=== PATIENT | male | born 1925 | race Caucasian/White ===

== ENCOUNTER 2016-06-03 13:16 | Observation (INO) | payer OTHER, MEDICARE ==
[2016-06-03] VITALS (8 sets, daily range): BP systolic 133–156; BP diastolic 66–80; PULSE 55–77; RESP 17–18; TEMP 97.6–98.8; O2SAT 95–96
[~2016-06-03] VITALS: Ht 177.8 cm; Wt 80.0 kg
[2016-06-03] MEDS ORDERED: SODIUM CHLORIDE 0.9% FLUSH 10 ML FLUSH IVF PRN (15:45)
[2016-06-03] MEDS ORDERED: ASPIRIN 325 MG TAB PO ONE (15:45)
--- NOTE | 2016-06-03 15:57 | RADRPT ---
EXAM DATE/TIME: 06/03/2016 15:45 [facility] COMPARISON: No previous studies available for comparison. INDICATIONS : Short of breath MEDICAL HISTORY : None. SURGICAL HISTORY : Pacemaker. Heart valve replacement ENCOUNTER: Initial ACUITY: 1 day PAIN SCORE: 0/10 LOCATION: chest FINDINGS: Cardiomegaly. Median sternotomy wires and CABG markers. Aortic calcification. Dual-lead pacer from a left subclavian transvenous approach noted. A small right effusion is present. CONCLUSION: Small right effusion. Cody Lowry MD on June 03, 2016 at 15:55 Board Certified Radiologist. This report was verified electronically.
--- NOTE | 2016-06-03 16:17 | PD ---
HPI Chief Complaint: Cardiac Complaint Time Seen by Provider: 15:35 Travel History International Travel<30 days: No Contact w/Intl Traveler<30days: No Traveled to known affect area: No History of Present Illness HPI 89-year-old male arrives to the ER following a visit to the [facility]. At the [facility] he had an EKG performed which revealed irregular beats with a ventricular paced rhythm. The patient reports feeling somewhat sleepy and lightheaded for the past 2-3 weeks. Palpitations are reported. He reports having medications changed recently however he is not sure what meds were changed. He's had no fever, shortness of breath or cough. PFSH Past Medical History Atrial Fibrillation: Yes Cardiovascular Problems: Yes (aortic valve replacement in 2003) Diabetes: Yes Patient Takes Glucophage: No Hypertension: Yes Social History Alcohol Use: Yes (on occasion) Tobacco Use: No Allergies-Medications (Allergen,Severity, Reaction): Coded Allergies: No Known Allergies (Unverified , 06/03/16) Reported Meds & Prescriptions Reported Meds & Active Scripts Active Reported [Bp Medication] 1 Tab PO BID Review of Systems Except as stated in HPI: all other systems reviewed are Neg General / Constitutional: No: Fever Physical Exam Narrative GENERAL: 89-year-old male pleasant well-nourished well-developed SKIN: Focused skin assessment warm/dry. HEAD: Atraumatic. Normocephalic. EYES: Pupils equal and round. No scleral icterus. No injection or drainage. ENT: No nasal bleeding or discharge. Mucous membranes pink and moist. NECK: Trachea midline. No JVD. CARDIOVASCULAR: Regular rate and rhythm. No murmur appreciated. Right chest wall pacing device. RESPIRATORY: No accessory muscle use. Clear to auscultation. Breath sounds equal bilaterally. GASTROINTESTINAL: Abdomen soft, non-tender, nondistended. Hepatic and splenic margins not palpable. MUSCULOSKELETAL: No obvious deformities. No clubbing. No cyanosis. No edema. NEUROLOGICAL: Awake and alert. No obvious cranial nerve deficits. Motor grossly within normal limits. Normal speech. PSYCHIATRIC: Appropriate mood and affect; insight and judgment normal. Data Data Last Documented VS Vital Signs Date Time Temp Pulse Resp B/P Pulse Ox O2 Delivery O2 Flow Rate FiO2 06/03/16 17:25 98.3 74 18 152/76 96 Room Air Vital signs reviewed Orders Electrocardiogram (06/03/16 ) Electrocardiogram (06/03/16 15:35) Basic Metabolic Panel (Bmp) (06/03/16 15:35) Ckmb (Isoenzyme) Profile (06/03/16 15:35) Complete Blood Count With Diff (06/03/16:35) Magnesium (Mg) (06/03/16 15:35) Prothrombin Time / Inr (Pt) (06/03/16:35) Act Partial Throm Time (Ptt) (06/03/16:35) Troponin I (06/03/16:35) Chest, Single Ap (06/03/16:35) Ecg Monitoring (06/03/16:35) Bilateral Bp Monitoring (06/03/16:35) Iv Access Insert/Monitor (06/03/16:35) Oximetry (06/03/16:35) Oxygen Administration (06/03/16:35) Aspirin (Aspirin) (06/03/16:45) Sodium Chloride 0.9% Flush (Ns Flush) (06/03/16:45) Activity Bed Rest With Brp (06/03/16:47) Vital Signs (Adult) Q4H (06/03/16:47) Cardiac Rhythm .As Directed (06/03/16:47) Notify Dr: Other .PRN (06/03/16:47) Notify Parameters (06/03/16:47) Resp Oxygen Nasal Cannula (06/03/16 ) Diet Heart Healthy (06/03/16 Dinner) Ckmb (Isoenzyme) Profile (06/03/16:47) Ckmb (Isoenzyme) Profile (06/03/16 20:47) Troponin I (06/03/16:47) Troponin I (06/03/16:47) Electrocardiogram (06/03/16:47) Electrocardiogram (06/03/16:47) ^ Obtain (06/03/16:47) Acetamin-Hydrocod 325-7.5 Mg ([place] 7.5 (06/03/16 18:00) Morphine Inj (Morphine Inj) (06/03/16 18:00) Ondansetron Inj (Zofran Inj) (06/03/16 18:00) Nitroglycerin Sl (Nitrostat Sl) (06/03/16 18:00) Aspirin (Aspirin) (06/04/16 09:00) Temazepam (Restoril) (06/03/16 18:00) Alprazolam (Xanax) (06/03/16 18:00) Adjunct Psychology Faculty Member / Telemetry [email or web address] (06/03/16 17:47) Admit Order (Ed Use Only) (06/03/16 17:47) Labs Laboratory Tests Test 06/03/16 16:13 White Blood Count 15.2 TH/MM3 Red Blood Count 5.07 MIL/MM3 Hemoglobin 13.7 GM/DL Hematocrit 43.2 % Mean Corpuscular Volume 85.1 FL Mean Corpuscular Hemoglobin 27.1 PG Mean Corpuscular Hemoglobin 31.8 % Concent Red Cell Distribution Width 15.2 % Platelet Count 167 TH/MM3 Mean Platelet Volume 7.4 FL Neutrophils (%) (Auto) 29.1 % Lymphocytes (%) (Auto) 65.4 % Monocytes (%) (Auto) 4.8 % Eosinophils (%) (Auto) 0.5 % Basophils (%) (Auto) 0.2 % Neutrophils # (Auto) 4.4 TH/MM3 Lymphocytes # (Auto) 10.0 TH/MM3 Monocytes # (Auto) 0.7 TH/MM3 Eosinophils # (Auto) 0.1 TH/MM3 Basophils # (Auto) 0.0 TH/MM3 CBC Comment AUTO DIFF Differential Total Cells 100 Counted Neutrophils % (Manual) 29 % Band Neutrophils % 1 % Lymphocytes % 66 % Monocytes % 4 % Neutrophils # (Manual) 4.6 TH/MM3 Differential Comment FINAL DIFF MANUAL Platelet Estimate NORMAL Platelet Morphology Comment NORMAL Prothrombin Time 11.1 SEC Prothromb Time International 1.0 RATIO Ratio Activated Partial 27.7 SEC Thromboplast Time Sodium Level 144 MEQ/L Potassium Level 4.8 MEQ/L Chloride Level 107 MEQ/L Carbon Dioxide Level 29.5 MEQ/L Anion Gap 8 MEQ/L Blood Urea Nitrogen 21 MG/DL Creatinine 1.41 MG/DL Estimat Glomerular Filtration 47 ML/MIN Rate Random Glucose 104 MG/DL Calcium Level 9.6 MG/DL Magnesium Level 2.6 MG/DL Total Creatine Kinase 63 U/L Troponin I 0.03 NG/ML MDM Medical Decision Making Medical Screen Exam Complete: Yes Emergency Medical Condition: Yes Medical Record Reviewed: Yes Differential Diagnosis NSTEMI, unstable angina, coronary vasospasm, PE, PTX, aortic dissection, pericarditis, myocarditis, endocarditis, PNA, esophageal disease, aneurysm, musculoskeletal etiologies, anxiety, cocaine/sympathomimetic abuse Narrative Course CBC & BMP Diagram 06/03/16 16:13 Troponin is 0.03 EKG reveals a ventricular paced rhythm at a rate of 69 Last 24 hours Impressions Chest X-Ray 06/03/16 1535 Signed Impressions: Service Date/Time: Friday, June 03, 2016 15:45 - CONCLUSION: Small right effusion. Cody Lowry MD The patient will stay for chest pain center evaluation. Diagnosis Primary Impression: Chest pain Qualified Code: R07.9 - Chest pain, unspecified type Additional Impression: Pleural effusion Admitting Information Admitting Physician Requests: Observation Samuel Johnson MD Jun 03, 2016 16:17
[2016-06-03 16:39] LABS: AUTOMATED NEUTROPHIL # 4.4 TH/MM3 (1.8-7.7); BASOPHIL % 0.2 % (0.0-2.0); EOSINOPHIL # 0.1 TH/MM3 (0-0.4); EOSINOPHIL % 0.5 % (0.0-4.0); HEMATOCRIT 43.2 % (39.0-51.0); LYMPH % 65.4 % (9.0-44.0); MEAN CELL VOLUME 85.1 FL (80.0-100.0); MEAN CORPUSCULAR HEMOGLOBIN 27.1 PG (27.0-34.0); MEAN CORPUSCULAR HGB CONC 31.8 % (32.0-36.0); MONO % 4.8 % (0.0-8.0); NEUT % 29.1 % (16.0-70.0); PLATELET COUNT 167 TH/MM3 (150-450); RED BLOOD COUNT 5.07 MIL/MM3 (4.50-5.90); RED CELL DISTRIBUTION WIDTH 15.2 % (11.6-17.2); WHITE BLOOD COUNT 15.2 TH/MM3 (4.0-11.0)
[2016-06-03 16:40] LABS: HEMO FLAGS AUTO DIFF
[2016-06-03 16:50] LABS: APTT (PATIENT) 27.7 SEC (24.3-30.1); PROTHROMBIN TIME - PATIENT 11.1 SEC (9.8-11.6)
[2016-06-03 17:00] LABS: BICARBONATE 29.5 MEQ/L (21.0-32.0); MAGNESIUM 2.6 MG/DL (1.5-2.5); POTASSIUM 4.8 MEQ/L (3.5-5.1)
[2016-06-03 17:05] LABS: BANDS 1 % (0-6); NEUTROPHIL # MANUAL DIFF 4.6 TH/MM3 (1.8-7.7); POLYS (SEG NEUTROPHILS) 29 % (16-70); WBC DIFF SAMPLE 100
[2016-06-03 17:06] LABS: PLATELET ESTIMATE SMEAR NORMAL (NORMAL); PLATELET MORPHOLOGY NORMAL (NORMAL); SCAN/DIFF FINAL DIFF MANUAL
[2016-06-03] MEDS ORDERED: ONDANSETRON HCL 4 MG/2 ML VIAL IV PRN (18:00)
[2016-06-03] MEDS ORDERED: ALPRAZolam 0.25 MG TAB PO PRN (18:00)
[2016-06-03] MEDS ORDERED: TEMAZEPAM 15 MG CAP PO PRN (18:00)
[2016-06-03] MEDS ORDERED: ACETAMINOPHEN/HYDROcodone 325 MG/7.5 MG TAB PO PRN (18:00)
[2016-06-03] MEDS ORDERED: MORPHINE SULFATE 4 MG/ML INJ IV PRN (18:00)
[2016-06-03] MEDS ORDERED: BP MEDICATION PO (18:00)
[2016-06-03] MEDS ORDERED: NITROGLYCERIN 0.4 MG SL 25 TABS/BTL SL PRN (18:00)
[2016-06-04 00:37] VITALS: BP 144/68; PULSE 76; RESP 18; TEMP 97.8; O2SAT 94
[2016-06-04 04:19] VITALS: PULSE 85
[2016-06-04 04:44] VITALS: BP 132/69; PULSE 83; RESP 21; TEMP 98; O2SAT 95
[2016-06-04 08:12] VITALS: BP 160/83; PULSE 85; RESP 18; TEMP 96.3; O2SAT 96
[2016-06-04] MEDS ORDERED: cloNIDine HCL 0.1 MG TAB PO PRN (08:45)
[2016-06-04] MEDS ORDERED: ASPIRIN 325 MG TAB PO SCH (09:00)
--- NOTE | 2016-06-04 09:01 | HHI.HP ---
H[facility] Chief Complaint Irregular heartbeat History of Present Illness This is an 89-year-old male with history of aortic valve replacement and single- vessel bypass in 2003 that presents at the request of the [facility] to evaluate his heart. Patient is very upset stating "I don't know who said I have chest pain, I don't have any chest pain." He states he was at the [facility] for a checkup and was found to have an irregular heartbeat on EKG and was told to come to the ED. However not going back a couple months ago, patient had a sudden onset of visual change of his right eye that lasted about 30 minutes. He spoke with the [facility] regarding this and had blood test done and a carotid ultrasound. He is unaware of these results. He states that everyone swallowed check his pulse and it feels irregular. This has been going on for a couple months. He states that he has a mac operator through the [facility] in [place] and the physician will allow him to come in as needed without appointment. He is actually requesting to be like goats week and see his mac operator today. He cannot recall ever being told that he had atrial fibrillation. He has not heard those words before. Denies recent illness. Denies fevers or chills. Last stress test were years ago. Review of Systems General: Patient denies fevers, chills recent, and recent travel HEENT: Patient denies headache, sore throat, difficulty swallowing. Cardiovascular: Denies any type of chest discomfort. Has sensation of heart beating irregularly but not rapidly. No syncope. Denies diaphoresis. Respiratory: Denies shortness of breath or inspirational chest discomfort. Denies coughing wheezing or hemoptysis. GI: Patient denies nausea, vomiting, diarrhea, abdominal pain, bloody stools. Musculoskeletal: Patient denies joint pain or edema. Denies calf pain or edema. Neurovascular: Patient denies numbness, tingling, weakness in extremities. Denies headache. Endocrine: Denies polyuria and polydipsia. Hematologic: Denies easy bruising. Skin: Denies rash or itching. Past Family Social History Allergies: Coded Allergies: No Known Allergies (Unverified , 06/03/16) Past Medical History Aortic valve replacement in 2003. CAD with a single-vessel bypass in 2003. Hypertension. He is unaware of lipid status however he should be taking medication but he does not. Denies diabetes. Denies any knowledge of atrial fibrillation in the past. Past Surgical History Aortic valve replacement and single-vessel bypass in 2003. Reported Medications Reported Meds & Active Scripts Active Reported [Bp Medication] 1 Tab PO BID Active Ordered Medications Current Medications Medications (Trade) Dose Ordered Sig/Kasey Route Start Time Stop Time Status Last Admin (NS Flush) 2 ml UNSCH PRN IVF 06/03/16 15:45 ([place] 7.5-325 Mg) 1 tab Q4H PRN PO 06/03/16 18:00 (Morphine Inj) 2 mg Q4H PRN IV 06/03/16 18:00 (Zofran Inj) 4 mg Q6H PRN IV 06/03/16 18:00 (Nitrostat Sl) 0.4 mg Q5M PRN SL 06/03/16 18:00 (Aspirin) 325 mg DAILY PO 06/04/16 09:00 (Restoril) 15 mg HS PRN PO 06/03/16 18:00 (Xanax) 0.25 mg Q8H PRN PO 06/03/16 18:00 (Catapres) 0.1 mg Q4H PRN PO 06/04/16 08:45 Family History There is family history of CAD. Social History Patient no longer smokes, denies alcohol use, denies illicit drug use. Physical Exam Vital Signs Vital Signs Date Time Temp Pulse Resp B/P Pulse Ox O2 Delivery O2 Flow Rate FiO2 06/04/16 08:12 96.3 85 18 160/83 96 06/04/16 04:44 98.0 83 21 132/69 95 06/04/16 04:19 85 06/04/16 00:37 97.8 76 18 144/68 94 06/03/16 23:55 69 06/03/16 23:30 95 06/03/16 20:25 98.8 77 18 147/71 95 06/03/16 19:50 55 06/03/16 18:51 77 18 133/80 95 Room Air 06/03/16 17:25 98.3 74 18 152/76 96 Room Air 06/03/16 16:11 96 Room Air 06/03/16 16:11 73 18 145/66 96 Room Air 06/03/16 16:11 18 96 Room Air 06/03/16 16:11 76 18 145/66 96 Room Air 156/70 06/03/16 13:18 97.6 69 17 155/74 96 Physical Exam GENERAL: This is a well-nourished, well-developed patient, in no apparent distress. Patient speaks in clear complete sentences. Patient is pleasant. HEENT: Head is atraumatic and normocephalic. Neck is supple without lymphadenopathy and trachea is midline. No JVD or carotid bruits. CARDIOVASCULAR: Irregularly irregular rate and rhythm. Grade 2 systolic murmur right sternal border. No gallops or rubs. RESPIRATORY: Clear to auscultation. Breath sounds equal bilaterally. No wheezes , rales, or rhonchi. Chest wall is nontender. No use of accessory muscles. GASTROINTESTINAL: Abdomen is nontender, nondistended. Abdomen soft. No obvious pulsatile mass or bruit. No CVA tenderness. Strong femoral pulses bilaterally. Normal bowel sounds in all quadrants. MUSCULOSKELETAL: Patient is moving upper and lower extremities freely. No calf tenderness or edema, no Homans sign. Strong pulses in upper and lower extremities. NEUROLOGICAL: Patient is alert and oriented. Cranial nerves 2-12 are grossly intact. No focal deficits and speech is clear. SKIN: No rash and turgor is normal. Laboratory Laboratory Tests Test 06/03/16 06/03/16 06/03/16 16:13 18:06 21:25 White Blood Count 15.2 Red Blood Count 5.07 Hemoglobin 13.7 Hematocrit 43.2 Mean Corpuscular Volume 85.1 Mean Corpuscular Hemoglobin 27.1 Mean Corpuscular Hemoglobin 31.8 Concent Red Cell Distribution Width 15.2 Platelet Count 167 Mean Platelet Volume 7.4 Neutrophils (%) (Auto) 29.1 Lymphocytes (%) (Auto) 65.4 Monocytes (%) (Auto) 4.8 Eosinophils (%) (Auto) 0.5 Basophils (%) (Auto) 0.2 Neutrophils # (Auto) 4.4 Lymphocytes # (Auto) 10.0 Monocytes # (Auto) 0.7 Eosinophils # (Auto) 0.1 Basophils # (Auto) 0.0 CBC Comment AUTO DIFF Differential Total Cells 100 Counted Neutrophils % (Manual) 29 Band Neutrophils % 1 Lymphocytes % 66 Monocytes % 4 Neutrophils # (Manual) 4.6 Differential Comment FINAL DIFF MANUAL Platelet Estimate NORMAL Platelet Morphology Comment NORMAL Prothrombin Time 11.1 Prothromb Time International 1.0 Ratio Activated Partial 27.7 Thromboplast Time Sodium Level 144 Potassium Level 4.8 Chloride Level 107 Carbon Dioxide Level 29.5 Anion Gap 8 Blood Urea Nitrogen 21 Creatinine 1.41 Estimat Glomerular Filtration 47 Rate Random Glucose 104 Calcium Level 9.6 Magnesium Level 2.6 Total Creatine Kinase 63 54 62 Troponin I 0.03 0.03 0.03 Result Diagram: 06/03/16 1613 06/03/16 1613 Imaging Last 24 hours Impressions Chest X-Ray 06/03/16 1535 Signed Impressions: Service Date/Time: Friday, June 03, 2016 15:45 - CONCLUSION: Small right effusion. Cody Lowry MD Course EKGs have A. fib and is ventricularly paced. Assessment and Plan Assessment and Plan * A. fib: Sounds like the patient may been in atrial fibrillation for last couple months. Sounds like he may have thrown a clot a couple months ago to the right eye that improved on its own. His chads score is high. He needs to be anticoagulated however the patient is somewhat reluctant to start anything without discussing this with his mac operator in [place] and once to see him today. He has been seen by Dr. Jones of cardiology and the chest pain center. He will have a Lexiscan and be discharged if the Lexiscan is nonischemic. We will write a prescription for warfarin 2 mg daily for him to start taking if he chooses but the patient has already stated that he will see his mac operator first. He is aware of stroke risks. * CAD: Patient states he has history of a single-vessel bypass. This will be evaluated with stress test. Patient states he does not take a statin however he should be on statin lesser is a contraindication. He should discuss this with his physician. * Hypertension: He cannot recall the name of medication he takes. We are trying to get this. He will also Catapres when necessary. * History of aortic valve replacement: Patient is to follow-up with his mac operator. Patient is stable at this time. He is agreeable to this plan. Danial Jimenez Jun 04, 2016 09:01
--- NOTE | 2016-06-04 09:26 | EKG ---
Date Performed: 06/03/2016 Time Performed: 21:55:01 PTAGE: 89 years EKG: ATRIAL FIBRILLATION INCOMPLETE RIGHT BUNDLE BRANCH BLOCK Demand pacing Since PREVIOUS TRACING , no significant change noted PREVIOUS TRACIN06/03/2016 18.42 DOCTOR: Mercedes Jones Interpretating Date/Time 06/04/2016 09:26:21
--- NOTE | 2016-06-04 09:27 | EKG ---
Date Performed: 06/03/2016 Time Performed: 18:41:43 PTAGE: 89 years EKG: AF with demand pacing Since PREVIOUS TRACING , no significant change noted PREVIOUS TRACIN06/03/2016 13.34 DOCTOR: Mercedes Jones Interpretating Date/Time 06/04/2016 09:27:30
--- NOTE | 2016-06-04 09:28 | EKG ---
Date Performed: 06/03/2016 Time Performed: 18:42:56 PTAGE: 89 years EKG: ELECTRONIC VENTRICULAR PACEMAKER ABNORMAL RHYTHM ECG AF Since PREVIOUS TRACING , no significant change noted PREVIOUS TRACIN06/03/2016 13.34 DOCTOR: Mercedes Jones Interpretating Date/Time 06/04/2016 09:27:47
[2016-06-04] MEDS ORDERED: DILT-48 PO (10:02)
[2016-06-04] MEDS ORDERED: ALLO100T PO (10:07)
[2016-06-04] MEDS ORDERED: CLON0.5T PO (10:07)
[2016-06-04] MEDS ORDERED: REGADENOSON INJ 0.4 MG/5 ML SYR ONE (10:52)
[2016-06-04] MEDS ORDERED: AMINOPHYLLINE INJ 250 MG/10 ML VIAL ONE (11:57)
[2016-06-04] MEDS ORDERED: DILTIAZEM-CD 240 MG CAP ER PO SCH (12:15)
[2016-06-04 13:03] VITALS: PULSE 81
--- NOTE | 2016-06-04 13:04 | RADRPT ---
EXAM DATE/TIME: 06/04/2016 10:21 [facility] COMPARISON: No previous studies available for comparison. INDICATIONS : Lightheaded. Palpitations. Angina. Abnormal EKG. DOSE: 27.1 mCi Tc99m Myoview at stress. 8.6 mCi Tc99m Myoview at rest. 0.4 mg Lexiscan STRESS SYMPTOMS: Dyspnea, headache and abdomen cramps. MEDICATIONS: 1.) 100 mg Aminophylline IV EJECTION FRACTION: 53% MEDICAL HISTORY : Diabetes mellitus type 2. Hypertension. SURGICAL HISTORY : Aortic valve. ENCOUNTER: Initial ACUITY: 3 weeks PAIN SCALE: 0/10 LOCATION: chest TECHNIQUE: The patient underwent pharmacologic stress with infusion of prescribed dose. Continuous ECG tracing was monitored during stress. Gated SPECT imaging was performed after stress and conventional SPECT i maging was performed at rest. The examination was performed on a SPECT/CT scanner, both attenuation and non-corrected datasets were reviewed. FINDINGS: DISTRIBUTION: The maximum perfused segment at stress is in the anterior wall. PERFUSION STUDY: The pattern of perfusion at stress is within normal limits. GATED STUDY: There is intact wall motion and thickening without hypokinetic or dyskinetic segments. CONCLUSION: 1. No definite reversible perfusion defects are identified to suggest rest induced myocardial ischemi a. 2. Normal ejection fraction. RISK CATEGORY: Low (<1% Annual Mortality Rate) Cody Lowry MD on June 04, 2016 at 13:01 Board Certified Radiologist. This report was verified electronically.
[2016-06-04] MEDS ORDERED: WARF4TAB51 PO (13:12)
--- NOTE | 2016-06-04 13:14 | HHI.DCPOC ---
Discharge Care Plan Diagnosis: (1) Chest pain (2) Atrial fibrillation (3) CAD (coronary artery disease) (4) Hx of aortic valve repair Goals to Promote Your Health GO TO ID CLINIC TODAY AND TALK WITH LEX. SHE WILL GET YOU SET UP WITH CARDIOLOGY FOLLOW UP AND MONITOR INR(WARFARIN LEVEL). * To prevent worsening of your condition and complications * To maintain your health at the optimal level Directions to Meet Your Goals Take your medications as prescribed Follow your dietary instruction Follow activity as directed Keep your appointments as scheduled Take your immunizations and boosters as scheduled If your symptoms worsen call your PCP, if no PCP go to Urgent Care Center or Emergency Room Smoking is Dangerous to Your Health. Avoid second hand smoke Call the 24-hour hour crisis hotline for domestic abuse at Danial Jimenez Jun 04, 2016 13:14
--- NOTE | 2016-06-04 16:24 | EKG ---
Date Performed: 06/03/2016 Time Performed: 13:34:56 PTAGE: 89 years EKG: ELECTRONIC VENTRICULAR PACEMAKER ABNORMAL RHYTHM ECG NO PREVIOUS TRACING DOCTOR: Mercedes Jones Interpretating Date/Time 06/04/2016 16:22:52
--- NOTE | 2016-06-04 16:28 | TR ---
Date Performed: 06/04/2016 Time Performed: 10:51:51 DOCTOR: Mercedes Jones DRUG LIST: CLINICAL HISTORY: CHEST PAIN REASON FOR TEST: CHEST PAIN REASON FOR ENDING: OBSERVATION: CONCLUSION: Lexiscan stress test was performed under standard four minute protocol. [place]ion[place] e was injected one minute prior to ending the test. No electrocardiographic abormalities were present to suggest ischemia. Nuclear imaging and interpretation are pending. COMMENTS:
== END 2016-06-04 14:09 | disposition home or self-care (01) ==
LOC: NEPE 13:16 → NEDA 17:49 → NEPGCP 19:36
PROVIDERS: ADMIT Internal Medicine Cardiovascular Disease; ATTEND Internal Medicine Cardiovascular Disease
DX: I48.91 Unspecified atrial fibrillation (principal); J90 Pleural effusion, not elsewhere classified; Z95.2 Presence of prosthetic heart valve; I25.10 Atherosclerotic heart disease of native coronary artery without angina pectoris; I10 Essential (primary) hypertension; R42 Dizziness and giddiness; R94.31 Abnormal electrocardiogram [ECG] [EKG]; I45.10 Unspecified right bundle-branch block
CPT/HCPCS: 71010; 78452; 80048; 82550; 83735; 84484; 85007; 85027; 85610; 85730; 93005; 93017; 99285; A9502; G0378; J0280; J2785